=== PATIENT | female | born 1965 | race Caucasian/White ===

== ENCOUNTER 2017-08-26 18:32 | Emergency (ER) | payer OTHER ==
[2017-08-26] MEDS ORDERED: AMLODIPINE 5 MG TAB ONE (19:43)
[2017-08-26] MEDS ORDERED: ACETAMINOPHEN 500 MG TAB ONE (19:55)
[2017-08-26 20:09] LABS: Absolute Lymphocytes (CBC) 2.2 K/uL (0.7-4.9); Absolute Monocytes 0.5 K/uL (0.1-1.3); Absolute Neutrophil 4.2 K/uL (1.8-8.0); Eosinophils % 6.1 % (0-4.4); Hematocrit 38.9 % (36.0-45.0); Lymphocytes % 29.2 % (15.3-44.8); MCV 80.2 fL (80-100); MPV 7.5 fL (7.6-11.3); Monocytes % 6.8 % (3.3-12.3); RBC Red Blood Cell Count 4.85 M/uL (3.86-4.86)
[2017-08-26 20:17] LABS: Protime INR 1.05
[2017-08-26 20:23] LABS: Bicarbonate 29 mEq/L (21-31); Glucose Level 88 mg/dL (65-120); Potassium 3.2 mEq/L (3.6-5.0); Sodium Level 138 mEq/L (135-145)
[2017-08-26 20:29] LABS: ALT/SGPT 21 IU/L (10-60); AST/SGOT 23 IU/L (10-42); Albumin 3.6 g/dL (3.2-5.5); Alkaline Phosphatase 104 IU/L (42-121); BUN Blood Urea Nitrogen 9 mg/dL (6-20); Bilirubin Direct 0.1 mg/dL (0-0.2); Bilirubin Total 0.4 mg/dL (0.3-1.2); Creatine Phosphokinase 51 IU/L (22-269); Magnesium 1.8 mg/dL (1.8-2.5); Protein, Total 7.4 g/dL (6.0-8.3)
--- NOTE | 2017-08-26 20:29 | RAD REPORT ---
EXAM DESCRIPTION: CT - Head Brain Wo Cont - 08/26/2017 8:21 pm CLINICAL HISTORY: Headache COMPARISON: None. TECHNIQUE: Computed axial tomography of the head was obtained. IV contrast was not requested. All CT scans are performed using dose optimization technique as appropriate and may include automated exposure control or mA/KV adjustment according to patient size. FINDINGS: An intracranial bleed is not seen . The ventricles are normal in caliber. No extra-axial fluid collection is noted. Mild opacification ethmoid sinus is present. The mastoids are clear.. IMPRESSION: No acute intracranial abnormality is seen. If patient's symptoms persist MRI of the bra in would be recommended. Mild ethmoid sinusitis
[2017-08-26 20:32] LABS: CKMB Creatine Kinase MB 1.3 ng/ml (0.3-4.0)
--- NOTE | 2017-08-26 20:35 | RAD REPORT ---
EXAM DESCRIPTION: Any Single View08/26/2017 8:28 pm CLINICAL HISTORY: cough COMPARISON: none FINDINGS: Small calcified granuloma is present in the left lung base. The lungs appear clear of acute infiltrate. The heart is normal size. A small hiatal hernia is prese nt IMPRESSION: No acute abnormalities displayed
--- NOTE | 2017-08-26 21:04 | ER ---
Nurse's Notes [facility] Name: Felisha Reese Age: 52 yrs Sex: Female : 1965 Arrival Date: 08/26/2017 Time: 18:33 Bed 3 Private MD: Gamaliel Hammond Diagnosis: Essential (primary) hypertension;Obesity, unspecified;Headache;Hypokalemia Presentation: 08/26 18:53 Presenting complaint: Patient states: Headache that started this AM with high blood aj pressure. Reports taking Lisinopril 20 mg twice to day. Transition of care: patient was not received from another setting of care. Onset of symptoms was August 26, 2017. Initial Sepsis Screen: Does the patient meet any 2 criteria? No. Patient's initial sepsis screen is negative. Does the patient have a suspected source of infection? No. Patient's initial sepsis screen is negative. Care prior to arrival: None. 18:53 Method Of Arrival: Ambulatory 18:53 Acuity: PHUONG 3 Triage Assessment: 18:57 Headache History: The patient has had previous headaches and this one is different than aj previous episodes. General: Appears in no apparent distress. comfortable, Behavior is calm, cooperative, appropriate for age. Pain: Complains of pain in face and scalp Pain currently is 8 out of 10 on a pain scale. Neuro: Level of Consciousness is awake, alert, obeys commands, Oriented to person, place, time, situation, Reports headache. Respiratory: Airway is patent Respiratory effort is even, unlabored, Respiratory pattern is regular, symmetrical. Derm: Skin is intact, is healthy with good turgor, Skin is pink, warm \T\ dry. normal. 19:17 Pain: Pain began 2-3 days ago. Also complains of no other associated symptoms. 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 - Social history:: Smoking status: Patient uses tobacco products, smokes one-half pack cigarettes per day. - Family history:: not pertinent. Screenin:16 Abuse screen: Denies threats or abuse. Denies injuries from another. Nutritional ao screening: No deficits noted. Tuberculosis screening: No symptoms or risk factors identified. Fall Risk None identified. Assessment: 19:14 General: Appears in no apparent distress. comfortable, Behavior is calm, cooperative, ao appropriate for age. Pain: Complains of pain in [place] Pain does not radiate. Neuro: Level of Consciousness is awake, alert, obeys commands, Oriented to person, place, time, situation, Appropriate for age Moves all extremities. Speech is normal, Facial symmetry appears normal, Pupils are PERRLA. Cardiovascular: Heart tones S1 S2 Capillary refill < 3 seconds Patient's skin is warm and dry. Respiratory: Airway is patent Respiratory effort is even, unlabored, Respiratory pattern is regular, symmetrical. Respiratory: Breath sounds are clear bilaterally. GI: Abdomen is non-distended. : No signs and/or symptoms were reported regarding the genitourinary system. EENT: No signs and/or symptoms were reported regarding the EENT system. Derm: Skin is intact, Skin is pink, warm \T\ dry. normal, Skin temperature is warm. Musculoskeletal: No signs and/or symptoms reported regarding the musculoskeletal system. 20:34 Reassessment: Patient appears in no apparent distress at this time. Patient and/or ao family updated on plan of care and expected duration. Pain level reassessed. Patient is alert, oriented x 3, equal unlabored respirations, skin warm/dry/pink. Waiting on lab results. 21:19 Reassessment: DC Home. Patient understand the POC and to follow up. ao Vital Signs: 18:57 BP 163 / 110; Pulse 88; Resp 18; Temp 97.4; Pulse Ox 95% on R/A; Weight 127.91 kg; aj Height 5 ft. 4 in. (162.56 cm); Pain 8/10; 20:34 BP 141 / 104; Pulse 71; Resp 14; Pulse Ox 98% on 2 lpm NC; ao 21:06 BP 130 / 96; ao 21:19 BP 130 / 96; Pulse 74; Resp 14; Pulse Ox 100% on 2 lpm NC; Pain 0/10; ao 18:57 Body Mass Index 48.40 (127.91 kg, 162.56 cm) ED Course: 18:33 Patient arrived in ED. as 18:33 Gamaliel Hammond DO is Private Physician. as 18:54 Triage completed. aj 18:57 Arm band placed on right wrist. Patient placed in an exam room. aj 19:08 Liang Marshall, ANDERSON is Primary Nurse. ao 19:16 Dario Couch MD is Attending Physician. naya 19:16 Patient has correct armband on for positive identification. radiation monitor on. Pulse ao ox on. NIBP on. 19:30 Inserted saline lock: 22 gauge in left antecubital area, using aseptic technique. Blood cc collected. 19:30 Initial lab(s) drawn, by me, sent to lab. EKG done, by ED staff, reviewed by Dario Couch MD. 20:20 CT Head Brain wo Cont In Process Unspecified. EDMS 20:27 X-ray completed. Portable x-ray completed in exam room. Patient tolerated procedure ml well. 20:28 XRAY Chest (1 view) In Process Unspecified. EDMS 20:59 Gamaliel Hammond DO is Referral Physician. naya 21:18 No provider procedures requiring assistance completed. IV discontinued, intact, ao bleeding controlled, No redness/swelling at site. Pressure dressing applied. Administered Medications: 19:54 Drug: Norvasc 10 mg Route: PO; ao 21:06 Follow up: BP 130 / 96 ao 19:56 Drug: Tylenol 1000 mg Route: PO; ao 21:07 Follow up: Response: No adverse reaction; Pain is decreased ao 21:16 Drug: Potassium Chloride 40 mEq Route: PO; ao 21:16 Follow up: Response: No adverse reaction ao Outcome: 21:02 Discharge ordered by . naya 21:18 Discharged to home ambulatory. ao 21:18 Condition: stable 21:18 Discharge instructions given to patient, Instructed on discharge instructions, follow up and referral plans. Demonstrated understanding of instructions, follow-up care, medications, Prescriptions given X 3. 21:20 Patient left the ED. ao Signatures: Dispatcher [employer] EDMS Miguel, Erin, RN RN aj Khoa, Dario, MD MD naya Nando, Toshia as Andrew, Yvette ml Yarsanism, Gissel cc Marshall, Liang, RN RN ao Corrections: (The following items were deleted from the chart) 19:48 19:48 Inserted saline lock: 22 gauge in left antecubital area, using aseptic technique. cc Blood collected. cc
--- NOTE | 2017-08-26 21:04 | EDPHYS ---
Physician Documentation [facility] Name: Felisha Reese Age: 52 yrs Sex: Female : 1965 Arrival Date: 08/26/2017 Time: 18:33 Bed 3 Private MD: Manish [facility] ED Physician Dario Couch HPI: 08/26 19:31 This 52 yrs old Female presents to ER via Ambulatory with complaints of Blood naya Pressure Problem, Headache. 19:31 The patient complains of pain to the forehead, left temporal area and right temporal naya area. The patient describes the headache as aching. Onset: The symptoms/episode began/occurred 1 day(s) ago. Associated signs and symptoms: The patient has no apparent associated signs or symptoms. Severity of symptoms: At its worst the pain was moderate, in the emergency department the pain is unchanged. Headache History: The patient has had previous headaches and this one is similar to previous episodes. The symptoms are alleviated by nothing. The patient has experienced similar episodes in the past, a few times. 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 - Social history:: Smoking status: Patient uses tobacco products, smokes one-half pack cigarettes per day. - Family history:: not pertinent. ROS: 19:31 Constitutional: Negative for fever, chills, and weight loss, Eyes: Negative for injury, naya pain, redness, and discharge, ENT: Negative for injury, pain, and discharge, Neck: Negative for injury, pain, and swelling, Cardiovascular: Negative for chest pain, palpitations, and edema, Respiratory: Negative for shortness of breath, cough, wheezing, and pleuritic chest pain, Abdomen/GI: Negative for abdominal pain, nausea, vomiting, diarrhea, and constipation, Back: Negative for injury and pain, : Negative for injury, bleeding, discharge, and swelling, MS/Extremity: Negative for injury and deformity, Skin: Negative for injury, rash, and discoloration, Psych: Negative for depression, anxiety, suicide ideation, homicidal ideation, and hallucinations, Allergy/Immunology: Negative for hives, rash, and allergies, Endocrine: Negative for neck swelling, polydipsia, polyuria, polyphagia, and marked weight changes, Hematologic/Lymphatic: Negative for swollen nodes, abnormal bleeding, and unusual bruising. 19:31 Neuro: Positive for headache. Exam: 19:31 Constitutional: This is a well developed, well nourished patient who is awake, alert, naya and in no acute distress. Head/Face: Normocephalic, atraumatic. Eyes: Pupils equal round and reactive to light, extra-ocular motions intact. Lids and lashes normal. Conjunctiva and sclera are non-icteric and not injected. Cornea within normal limits. Periorbital areas with no swelling, redness, or edema. ENT: Nares patent. No nasal discharge, no septal abnormalities noted. Tympanic membranes are normal and external auditory canals are clear. Oropharynx with no redness, swelling, or masses, exudates, or evidence of obstruction, uvula midline. Mucous membranes moist. Neck: Trachea midline, no thyromegaly or masses palpated, and no cervical lymphadenopathy. Supple, full range of motion without nuchal rigidity, or vertebral point tenderness. No Meningismus. Chest/axilla: Normal chest wall appearance and motion. Nontender with no deformity. No lesions are appreciated. Cardiovascular: Regular rate and rhythm with a normal S1 and S2. No gallops, murmurs, or rubs. Normal PMI, no JVD. No pulse deficits. Respiratory: Lungs have equal breath sounds bilaterally, clear to auscultation and percussion. No rales, rhonchi or wheezes noted. No increased work of breathing, no retractions or nasal flaring. Abdomen/GI: Soft, non-tender, with normal bowel sounds. No distension or tympany. No guarding or rebound. No evidence of tenderness throughout. Back: No spinal tenderness. No costovertebral tenderness. Full range of motion. Female : Normal external genitalia. Skin: Warm, dry with normal turgor. Normal color with no rashes, no lesions, and no evidence of cellulitis. MS/ Extremity: Pulses equal, no cyanosis. Neurovascular intact. Full, normal range of motion. Psych: Awake, alert, with orientation to person, place and time. Behavior, mood, and affect are within normal limits. 19:31 Neuro: Orientation: is normal, appropriate for stated age, no acute changes, Mentation: is normal, appropriate for stated age, no acute changes, Memory: is normal, Cranial nerves: grossly normal, Cerebellar function: is grossly normal, is grossly normal based on the patient's age, no acute changes, Motor: is normal, Sensation: is normal, Gait: not tested. seizure activity, is not displayed by the patient. Vital Signs: 18:57 BP 163 / 110; Pulse 88; Resp 18; Temp 97.4; Pulse Ox 95% on R/A; Weight 127.91 kg; aj Height 5 ft. 4 in. (162.56 cm); Pain 8/10; 20:34 BP 141 / 104; Pulse 71; Resp 14; Pulse Ox 98% on 2 lpm NC; ao 21:06 BP 130 / 96; ao 21:19 BP 130 / 96; Pulse 74; Resp 14; Pulse Ox 100% on 2 lpm NC; Pain 0/10; ao 18:57 Body Mass Index 48.40 (127.91 kg, 162.56 cm) aj MDM: 19:16 Patient medically screened. 08/26 19:30 Order name: Basic Metabolic Panel 08/26 19:30 Order name: BNP 08/26 19:30 Order name: CBC with Diff 08/26 19:30 Order name: Ckmb 08/26 19:30 Order name: CPK 08/26 19:30 Order name: LFT's 08/26 19:30 Order name: Magnesium 08/26 20:03 Order name: Basic Metabolic Panel; Complete Time: 20:56 EDLA 08/26 20:03 Order name: Liver (Hepatic) Function; Complete Time: 20:56 EDLA 08/26 20:03 Order name: Creatine Phosphokinase; Complete Time: 20:56 EDLA 08/26 19:30 Order name: XRAY Chest (1 view); Complete Time: 20:56 08/26 19:30 Order name: EKG; Complete Time: 20:06 08/26 19:30 Order name: Cardiac monitoring; Complete Time: 19:39 [facility] 08/26 19:30 Order name: EKG - Nurse/Tech; Complete Time: 19:39 [facility] 08/26 19:30 Order name: IV Saline Lock; Complete Time: 19:47 [facility] 08/26 19:30 Order name: CT Head Brain wo Cont; Complete Time: 20:56 [facility] 08/26 20:03 Order name: CKMB Creatine Kinase MB; Complete Time: 20:56 [facility] 08/26 20:03 Order name: Magnesium; Complete Time: 20:56 [facility] 08/26 20:03 Order name: BNP B-Type Natriuretic Peptide; Complete Time: 20:56 [facility] 08/26 20:03 Order name: Troponin (Emerg Dept Use Only); Complete Time: 20:56 [facility] 08/26 20:03 Order name: CBC with Automated Diff; Complete Time: 20:56 [facility] 08/26 20:03 Order name: Protime (+INR); Complete Time: 20:56 [facility] 08/26 20:03 Order name: PTT, Activated Partial Thromb; Complete Time: 20:56 [facility] 08/26 19:30 Order name: Labs collected and sent; Complete Time: 19:39 [facility] 08/26 19:30 Order name: O2 Per Protocol; Complete Time: 19:39 [facility] 08/26 19:30 Order name: O2 Sat Monitoring; Complete Time: 19:40 [facility] Administered Medications: 19:54 Drug: Norvasc 10 mg Route: PO; ao 21:06 Follow up: BP 130 / 96 ao 19:56 Drug: Tylenol 1000 mg Route: PO; ao 21:07 Follow up: Response: No adverse reaction; Pain is decreased ao 21:16 Drug: Potassium Chloride 40 mEq Route: PO; ao 21:16 Follow up: Response: No adverse reaction ao Disposition: 08/26/17 21:02 Discharged to Home. Impression: Essential (primary) hypertension, Obesity, unspecified, Headache, Hypokalemia. - Condition is Stable. - Discharge Instructions: Potassium Content of Foods, General Headache Without Cause, Hypertension, Hypertension, Renq-so-Dtot, How to Take Your Blood Pressure, Eywv-af-Adis, Aspirin and Your Heart, Hypokalemia, Managing Your High Blood Pressure. - Prescriptions for Norvasc 5 mg Oral Tablet - take 1 tablet by ORAL route once daily; 20 tablet. Lisinopril 20 mg Oral Tablet - take 1 tablet by ORAL route once daily; 20 tablet. Fioricet with Codeine 50- 325-40-30 mg Oral capsule - take 1 capsule by ORAL route every 4 hours as needed not to exceed 6 capsules per 24hrs; 20 capsule. - Medication Reconciliation Form, Thank You Letter, Antibiotic Education, Prescription Opioid Use form. - Follow up: Gamaliel Hammond; When: 2 - 3 days; Reason: Recheck today's complaints, Continuance of care, Re-evaluation by your physician. - Problem is new. - Symptoms have improved. Signatures: Dispatcher [employer] EDMS Erin Miguel RN RN Dario Jacob MD MD cha Ortiz, Alex, RN RN ao Corrections: (The following items were deleted from the chart) 20:07 20:06 PROTIME (+INR)+COAG.LAB.BRZ ordered. EDMS EDMS 20:07 20:06 PTT, ACTIVATED+COAG.LAB.BRZ ordered. EDMS EDMS 20:07 20:06 TROPONIN (EMERG DEPT USE ONLY)+C.LAB.BRZ ordered. EDMS EDMS
[2017-08-26] MEDS ORDERED: POTASSIUM CL SA 10 MEQ TAB PO ONE (21:08)
--- NOTE | 2017-08-27 15:42 | EKG ---
Test Date: 2017-08-26 Test Time: 19:35:06 Production Control Technologist: MARTIN MEASUREMENT RESULTS: Intervals: Rate: 76 UT: 196 QRSD: 74 QT: 402 QTc: 452 [place]: P: 57 UT: 196 QRS: 53 T: 57 INTERPRETIVE STATEMENTS: Normal sinus rhythm Normal ECG No previous ECG available for comparison Electronically Signed On 08-27-17 15:38:02 CDT by Kip Lizama
== END 2017-08-26 21:20 | disposition home or self-care (01) ==
LOC: ER 18:32
DX: I10 Essential (primary) hypertension (principal); E87.6 Hypokalemia; E66.9 Obesity, unspecified; F17.210 Nicotine dependence, cigarettes, uncomplicated; F41.9 Anxiety disorder, unspecified; F32.9 Major depressive disorder, single episode, unspecified
CPT/HCPCS: 36415; 70450; 71045; 80048; 80076; 82550; 82553; 83735; 83880; 84484; 85025; 85610; 85730; 93005; 99284

== ENCOUNTER 2018-07-08 18:32 | Emergency (ER) | payer OTHER ==
--- OUTSIDE RECORDS SUMMARY | 2018-07-08 18:34 | XMS REPORT ---
:1965 Author Organization [employer] Care Team Providers Name Role Phone Gamaliel Hammond Provider Role Unavailable Allergies No Known Allergies Problems Problem Type Condition Code Onset Dates Condition Status Problem Chronic hepatitis C B18.2 Active Problem Benign essential hypertension I10 Active Problem Chronic obstruct airways disease J44.9 Active Problem Dependence on other enabling Z99.89 Active machines and devices Problem Abnormal mammogram R92.8 Active Problem Obstructive sleep apnea (adult) G47.33 Active (pediatric) Problem Gastro-esophageal reflux disease K21.9 Active without esophagitis Problem Chronic back pain M54.9 Active Problem Bipolar disorder F31.9 Active Problem Depression with anxiety F41.8 Active Problem Hypersomnia G47.10 Active Problem Tobacco use disorder F17.200 Active Problem Seasonal and perennial allergic J30.9 Active rhinitis Medications No Known Medications Results No Known Results Summary Purpose [employer] Submission
--- OUTSIDE RECORDS SUMMARY | 2018-07-08 18:34 | XMS REPORT ---
:1965 Author Organization [employer] Care Team Providers Name Role Phone Manish Gamaliel Provider Role Unavailable Allergies No Known Allergies Problems Problem Type Condition Code Onset Dates Condition Status Problem Chronic hepatitis C B18.2 Active Problem Benign essential hypertension I10 Active Problem Chronic obstruct airways disease J44.9 Active Problem Dependence on other enabling Z99.89 Active machines and devices Assessment Nonintractable headache, R51 Active unspecified chronicity pattern, unspecified headache type Problem Abnormal mammogram R92.8 Active Problem Obstructive sleep apnea (adult) G47.33 Active (pediatric) Problem Gastro-esophageal reflux disease K21.9 Active without esophagitis Problem Chronic back pain M54.9 Active Problem Bipolar disorder F31.9 Active Problem Depression with anxiety F41.8 Active Assessment Bipolar disorder F31.9 Active Assessment Hypersomnia G47.10 Active Assessment Chronic back pain M54.9 Active Assessment Gastro-esophageal reflux disease K21.9 Active without esophagitis Assessment Benign essential hypertension I10 Active Problem Hypersomnia G47.10 Active Assessment Depression with anxiety F41.8 Active Problem Tobacco use disorder F17.200 Active Assessment Chronic obstruct airways disease J44.9 Active Problem Seasonal and perennial allergic J30.9 Active rhinitis Medications Medication Code Code Instructions Start End Status Dosage System Date Date ProAir HFA [facility] 62843525406 108MCG/A Active INHALE TWO PUFFS BY MOUTH 4 TIMES DAILY ProAir HFA [facility] 29745781428 108MCG/A Active INHALE TWO Inhale every PUFFS BY 4-6 hours as MOUTH 4 needed TIMES DAILY Fluoxetine HCl ND 75519534525 20 MG Orally Active 1 tablet in Once a day the morning Qvar [facility] 24949580456 80MCG Active INHALE TWO PUFFS BY MOUTH TWICE DAILY Lisinopril ND 33497427963 20MG Active TAKE ONE TABLET BY MOUTH TWICEDAILY Omeprazole ND 33700493097 40MG Active TAKE ONE CAPSULE BY MOUTH ONCE DAILY Gabapentin ND 45316332340 600MG PO TID Active TAKE ONE TABLET BY MOUTH THREE TIMES DAILY Norvasc [facility] 13814343556 5 MG Orally Active 1 tablet Once a day Lisinopril [facility] 00181225065 20MG BID Active TAKE ONE TABLET BY MOUTH ONCE DAILY Olanzapine [facility] 10646627645 20 MG Orally Active 1 tablet Once a day Azozfkkoao-SJIF-Gsnxw [facility] 41817491804 50-325-40 MG September 10, Active 1 tablet as ine Orally every 2017 needed hrs PRN Pain Gabapentin [facility] 26650936542 600MG Active TAKE ONE TABLET BY MOUTH THREE TIMES DAILY Hydrochlorothiazide [facility] 65987813630 25MG Active TAKE ONE TABLET BY MOUTH ONCE DAILY Hydrochlorothiazide [facility] 95974929883 25MG Active TAKE ONE TABLET BY MOUTH ONCE DAILY Results No Known Results Summary Purpose eClinicalWorks Submission
--- OUTSIDE RECORDS SUMMARY | 2018-07-08 18:34 | XMS REPORT ---
:1965 Author Organization [employer] Care Team Providers Name Role Phone Gamaliel Hammond Provider Role Unavailable Allergies No Known Allergies Problems Problem Type Condition Code Onset Dates Condition Status Problem Tobacco use disorder F17.200 Active Problem Chronic hepatitis C B18.2 Active Problem Seasonal and perennial allergic J30.9 Active rhinitis Problem Bipolar disorder F31.9 Active Problem Depression with anxiety F41.8 Active Problem Abnormal mammogram R92.8 Active Problem Benign essential hypertension I10 Active Problem Chronic obstruct airways disease J44.9 Active Problem Gastro-esophageal reflux disease K21.9 Active without esophagitis Problem Chronic back pain M54.9 Active Assessment Follow-up exam Z09 Active Assessment Benign essential hypertension I10 Active Problem Hypersomnia G47.10 Active Medications Medication Code Code Instructions Start End Status Dosage System Date Date Gabapentin [facility] 96650791424 600MG Active TAKE ONE TABLET BY MOUTH THREE TIMES DAILY Lisinopril [facility] [address]-74 20MG BID Active TAKE ONE TABLET BY MOUTH ONCE DAILY Qvar [facility] 46275066804 80MCG Active INHALE TWO PUFFS BY MOUTH TWICE DAILY Olanzapine [facility] 13491018460 20 MG Orally Active 1 tablet Once a day Hydrochlorothiazide [facility] 28959894821 25MG Active TAKE ONE TABLET BY MOUTH ONCE DAILY Hydrochlorothiazide [facility] 12240384068 25MG PO Once Active TAKE ONE daily TABLET BY MOUTH ONCE DAILY Norvasc [facility] 27283580002 5 MG Orally Active 1 tablet Once a day Omeprazole [facility] 51744315382 40MG Active TAKE ONE CAPSULE BY MOUTH ONCE DAILY Fluoxetine HCl [facility] 94138734680 20 MG Orally Active 1 tablet Once a day in the morning ProAir HFA [facility] 88355907946 108MCG/A Active INHALE TWO PUFFS BY MOUTH 4 TIMES DAILY Lisinopril [facility] 41823287970 20MG PO BID Active TAKE ONE TABLET BY MOUTH ONCE DAILY Results No Known Results Summary Purpose eClinicalWorks Submission
--- OUTSIDE RECORDS SUMMARY | 2018-07-08 18:35 | XMS REPORT ---
[...] Problem Tobacco use disorder F17.200 Active Assessment Nonintractable headache, R51 Active unspecified chronicity pattern, unspecified headache type Problem Seasonal and perennial allergic J30.9 Active rhinitis Medications Medication Code Code Instructions Start End Date Status Dosage System Date [facility] 00697440869 50-325-40 MG September 10November 22, Active 1 tablet P-Caffeine Orally every 8 2017 2017 as needed hrs PRN Pain Results No Known Results Summary Purpose eClinicalWorks Submission
--- OUTSIDE RECORDS SUMMARY | 2018-07-08 18:35 | XMS REPORT ---
:1965 Author Organization eClinicalWorks Care Team Providers Name Role Phone Manish Gamaliel Provider Role Unavailable Allergies, Adverse Reactions, Alerts Substance Reaction Event Type Aspirin Info Not Available Drug Allergy Problems Problem Type Condition Code Onset Dates Condition Status Problem Chronic hepatitis C B18.2 Active Problem Benign essential hypertension I10 Active Problem Chronic obstruct airways disease J44.9 Active Problem Dependence on other enabling Z99.89 Active machines and devices Assessment Chronic back pain M54.9 Active Problem Abnormal mammogram R92.8 Active Assessment Nonintractable headache, R51 Active unspecified chronicity pattern, unspecified headache type Assessment Acute cystitis without hematuria N30.00 Active Problem Obstructive sleep apnea (adult) G47.33 Active (pediatric) Problem Gastro-esophageal reflux disease K21.9 Active without esophagitis Problem Chronic back pain M54.9 Active Problem Bipolar disorder F31.9 Active Problem Depression with anxiety F41.8 Active Assessment Hypersomnia G47.10 Active Assessment Depression with anxiety F41.8 Active Assessment Gastro-esophageal reflux disease K21.9 Active without esophagitis Assessment Bipolar disorder F31.9 Active Problem Hypersomnia G47.10 Active Assessment Chronic obstruct airways disease J44.9 Active Problem Tobacco use disorder F17.200 Active Assessment Benign essential hypertension I10 Active Problem Seasonal and perennial allergic J30.9 Active rhinitis Medications Medication Code Code Instructions Start End Status Dosage System Date Date Olanzapine ND 13115945027 20 MG Orally Active 1 tablet Once a day Norvasc [facility] [place] [facility]] 43442439563 5 MG Orally Active 1 tablet Once a day Lisinopril [facility] [place]] 21158683857 40 MG Orally November Active 0.5 tablet Twice a day 2017 Macrobid [facility] [place]] 15838391449 100 MG Orally Dec 07, Active 1 capsule every 12 hrs 2017 with food Omeprazole [facility] [place]] 08870243067 40MG Active TAKE ONE CAPSULE BY MOUTH ONCE DAILY Lisinopril [facility] [place]] 21618106370 20MG Active TAKE ONE TABLET BY MOUTH TWICEDAILY Hydrochlorothiazide [facility] [place] 2] 87436940226 25MG Active TAKE ONE TABLET BY MOUTH ONCE DAILY Qvar [facility] [place] 2] 39929231647 80MCG Active INHALE TWO PUFFS BY MOUTH TWICE DAILY Ypcmhxzckn-QBRF-Bdmyg [facility] [place] 2] 02636452952 50-325-40 MG Active 1 tablet as ine Orally every 8 needed hrs PRN Pain ProAir HFA [facility] [place] 2] 84773642728 108MCG/A Active INHALE TWO Inhale every PUFFS BY 4-6 hours as MOUTH 4 needed TIMES DAILY Fluoxetine HCl [facility] [place] 2] 18596147052 20 MG Orally Active 1 tablet in Once a day the morning ProAir HFA [facility] [place] 2] 33695612786 108MCG/A Active INHALE TWO PUFFS BY MOUTH 4 TIMES DAILY Gabapentin [facility] [place]] 92738683468 600MG PO TID Active TAKE ONE TABLET BY MOUTH THREE TIMES DAILY Results No Known Results Summary Purpose eClinicalWorks Submission
--- OUTSIDE RECORDS SUMMARY | 2018-07-08 18:35 | XMS REPORT ---
[...] allergic J30.9 Active rhinitis Medications Medication Code System Code Instructions Start End Date Status Dosage Date Macrobid [facility] 15460210043 100 MG Orally Dec 07, Active 1 capsule every 12 hrs 2017 with food Pyridium ND 13829142902 200 MG Orally Dec 07, Dec 09, Active 1 tablet Three times a 2018 2018 after meals day Results No Known Results Summary Purpose eClinicalWorks Submission
--- OUTSIDE RECORDS SUMMARY | 2018-07-08 18:35 | XMS REPORT ---
:1965 Author Organization eClinicalWorks Care Team Providers Name Role Phone HammondGamaliel Provider Role Unavailable Allergies No Known Allergies [...] Problem Tobacco use disorder F17.200 Active Assessment Gastro-esophageal reflux disease K21.9 Active without esophagitis Problem Seasonal and perennial allergic J30.9 Active rhinitis Medications Medication Code System Code Instructions Start End Date Status Dosage Date Omeprazole [facility] 40643572649 40MG Orally Once Active 1 capsule a day Results No Known Results Summary Purpose eClinicalWorks Submission
--- OUTSIDE RECORDS SUMMARY | 2018-07-08 18:35 | XMS REPORT ---
[...] Instructions Start End Date Status Dosage Date Lisinopril [facility] 48448881723 40 MG Orally November 13, Active 0.5 tablet Twice a day 2018 Results No Known Results Summary Purpose eClinicalWorks Submission
--- OUTSIDE RECORDS SUMMARY | 2018-07-08 18:35 | XMS REPORT ---
[...] Start End Status Dosage System Date Date Nystatin [facility] [id number] UNIT/ML Feb 04, Feb 14, Active Swish 4- 6ml Mouth/Throat 2017 2017 in mouth, Four times a day retain for as long as possible before swallowing Results No Known Results Summary Purpose eClinicalWorks Submission
--- OUTSIDE RECORDS SUMMARY | 2018-07-08 18:35 | XMS REPORT ---
:1965 Author Organization eClinicalWorks Care Team Providers Name Role Phone Radha Hammondh Provider Role Unavailable Allergies, Adverse Reactions, Alerts [...] unspecified chronicity pattern, unspecified headache type Assessment Need for influenza vaccination Z23 Active Problem Obstructive sleep apnea (adult) G47.33 Active (pediatric) Problem Gastro-esophageal reflux disease K21.9 Active without esophagitis Problem Chronic back pain M54.9 Active Problem Bipolar disorder F31.9 Active Problem Depression with anxiety F41.8 Active Assessment Obstructive sleep apnea (adult) G47.33 Active (pediatric) Assessment Depression with anxiety F41.8 Active Assessment Gastro-esophageal reflux disease K21.9 Active without esophagitis Assessment Bipolar disorder F31.9 Active Problem Hypersomnia G47.10 Active Assessment 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 43561922556 5 MG Orally Active 1 tablet Once a day Omeprazole ND 08565745335 40MG Orally Active take one Once a day capsule by mouth once daily Zgbzitxxbo-VGBJ-Tbcam ND 52394109023 50-325-40 MG Active 1 tablet as ine Orally every needed 8 hrs PRN Pain ProAir HFA [facility] 63213879928 108MCG/A Active INHALE TWO PUFFS BY MOUTH 4 TIMES DAILY Olanzapine ND 43417563887 20 MG Orally Active 1 tablet Once a day Gabapentin [facility] 13041854647 600MG PO TID Active TAKE ONE TABLET BY MOUTH THREE TIMES DAILY Hydrochlorothiazide ND 96702886581 25MG Orally Active take one Once a day tablet by mouth once daily Fluoxetine HCl ND 38464028294 20 MG Orally Active 1 tablet in Once a day the morning ProAir HFA [facility] 36782387166 108MCG/A Active INHALE TWO Inhale every PUFFS BY 4-6 hours as MOUTH 4 needed TIMES DAILY Qvar [facility] 61896740547 80MCG Inhale Gissel Active inhale two BID 11, puffs by 2019 mouth twice daily Lisinopril [facility] 05672739072 40MG Orally Active 0.5 tablet Twice a day Gabapentin [facility] 65851823641 600MG PO TID Active TAKE ONE TABLET BY MOUTH THREE TIMES DAILY Omeprazole [facility] 74552597456 40MG Orally Active 1 capsule Once a day ProAir HFA [facility] 48580959696 108MCG/A Active INHALE TWO PUFFS BY MOUTH 4 TIMES DAILY Hydrochlorothiazide [facility] 09519763952 25MG PO Once Active TAKE ONE daily TABLET BY MOUTH ONCE DAILY Results No Known Results Immunizations Vaccine Administration Date Pneumovax Apr 14, 2018 Afluria Apr 14, 2018 Summary Purpose eClinicalWorks Submission
--- OUTSIDE RECORDS SUMMARY | 2018-07-08 18:35 | XMS REPORT ---
[...] Start End Status Dosage System Date Date Qvar [facility] 57864433882 80MCG Inhale BID Apr 19, Inactive inhale 2018 two puffs by mouth twice daily Qvar RediHaler [facility] 49494080495 80 MCG/ACT Apr 19, Active 2 puffs Inhalation Twice 2018 a day Results No Known Results Summary Purpose eClinicalWorks Submission
--- OUTSIDE RECORDS SUMMARY | 2018-07-08 18:35 | XMS REPORT ---
:1965 Author Organization eClinicalWorks Care Team Providers Name Role Phone HammondGamaliel Provider Role Unavailable Allergies, Adverse Reactions, Alerts [...] Problem Depression with anxiety F41.8 Active Assessment Abscess of back L02.212 Active Problem Hypersomnia G47.10 Active Problem Tobacco use disorder F17.200 Active Assessment Cellulitis of back L03.312 Active Problem Seasonal and perennial allergic J30.9 Active rhinitis Medications Medication Code Code Instructions Start End Status Dosage System Date Date Bactrim DS [facility] 45097494806 800-160 MG October Active 1 tablet Orally Twice a 14, 24, day 2017 2017 ProAir HFA [facility] 21297734909 108MCG/A Active INHALE TWO PUFFS BY MOUTH 4 TIMES DAILY Gabapentin ND 30942607968 600MG PO TID Active TAKE ONE TABLET BY MOUTH THREE TIMES DAILY Lisinopril [facility] 49220075548 20MG Active TAKE ONE TABLET BY MOUTH TWICEDAILY Ibaqnhyhxo-TPIM-Dihcj ND 20525861451 50-325-40 MG September 10, Active 1 tablet as ine Orally every 8 2018 needed hrs PRN Pain Fluoxetine HCl ND 48085588584 20 MG Orally Active 1 tablet in Once a day the morning Qvar [facility] 80790984189 80MCG Active INHALE TWO PUFFS BY MOUTH TWICE DAILY ProAir HFA [facility] 80234142928 108MCG/A Active INHALE TWO Inhale every PUFFS BY 4-6 hours as MOUTH 4 needed TIMES DAILY Lisinopril [facility] 21984906209 20MG BID Active TAKE ONE TABLET BY MOUTH ONCE DAILY Hydrochlorothiazide [facility] 61394116541 25MG Active TAKE ONE TABLET BY MOUTH ONCE DAILY Gabapentin [facility] 25080069059 600MG Active TAKE ONE TABLET BY MOUTH THREE TIMES DAILY Norvasc [facility] 90733322943 5 MG Orally Active 1 tablet Once a day Omeprazole [facility] 87060458592 40MG Active TAKE ONE CAPSULE BY MOUTH ONCE DAILY Olanzapine [facility] 77088406404 20 MG Orally Active 1 tablet Once a day Hydrochlorothiazide [facility] 38509571893 25MG Active TAKE ONE TABLET BY MOUTH ONCE DAILY Results No Known Results Summary Purpose eClinicalWorks Submission
[2018-07-08] MEDS ORDERED: HYDROCODONE/APAP 7.5/325 MG TAB ONE (19:59)
--- NOTE | 2018-07-08 21:14 | RAD REPORT ---
EXAM DESCRIPTION: RAD - Wrist Left 3 View - 07/08/2018 8:56 pm CLINICAL HISTORY: Left wrist pain status post injury FINDINGS: Soft tissue swelling is present about the wrist A horizontal area of sclerosis is present within the scaphoid. This is equivocal for a fracture. CT r ecommended further evaluation Horizontal lucency within the ulnar styloid process probably represents a nondisplaced fracture. This also can be evaluated on the CT scan. No dislocation seen
--- NOTE | 2018-07-08 21:15 | RAD REPORT ---
EXAM DESCRIPTION: RAD -Hand Left 3 View - 07/08/2018 8:56 pm CLINICAL HISTORY: Left hand pain status post injury FINDINGS: Soft tissue swelling is present about the wrist A horizontal area of sclerosis is present within the scaphoid. This is equivocal for a fracture. CT r ecommended further evaluation Horizontal lucency within the ulnar styloid process probably represents a nondisplaced fracture. This also can be evaluated on the CT scan. No dislocation seen
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
--- NOTE | 2018-07-09 13:43 | EKG ---
Test Date: 2018-07-08 Test Time: 18:52:10 Real Property Appraiser: SHANKAR MEASUREMENT RESULTS: Intervals: Rate: 100 OR: 156 QRSD: 74 QT: 348 QTc: 448 [place]: P: 41 OR: 156 QRS: 46 T: 54 INTERPRETIVE STATEMENTS: Normal sinus rhythm Normal ECG Compared to ECG 08/26/2017 19:35:06 No significant changes Electronically Signed On 07-09-18 13:42:08 PIANO TUNER by Asif Mar
== END 2018-07-08 23:55 | disposition home or self-care (01) ==
LOC: ER 18:32
PROC: 2W3DX1Z Immobilization of Left Lower Arm using Splint (ICD-10-PCS; principal; 2018-07-08)
DX: S52.612A Displaced fracture of left ulna styloid process, initial encounter for closed fracture (principal); V49.60XA Unspecified car occupant injured in collision with unspecified motor vehicles in traffic accident, initial encounter; I10 Essential (primary) hypertension; F32.9 Major depressive disorder, single episode, unspecified; F41.9 Anxiety disorder, unspecified; F17.210 Nicotine dependence, cigarettes, uncomplicated; J44.9 Chronic obstructive pulmonary disease, unspecified
CPT/HCPCS: 93005; 99285